=== PATIENT | female | born 1970 | race Caucasian/White ===

== ENCOUNTER 2017-09-23 12:15 | Emergency (ER) | payer OTHER ==
[~2017-09-23] VITALS: Ht 162.6 cm; Wt 89.6 kg
[~2017-09-23 12:15] MED LIST: CYCL-319 PO; HYDR-3498 PO; IBUP-1542 PO; NAPR-260 PO
[2017-09-23 12:19] VITALS: Ht 162.6 cm; Wt 89.6 kg
[2017-09-23] MEDS ORDERED: KETOROLAC 30 MG INJ IM STA (12:42)
[2017-09-23] MEDS ORDERED: ACETAMINOPHEN 325 MG TAB PO ONE (13:00)
--- NOTE | 2017-09-23 14:09 | RADRPT ---
PROCEDURE: XR Chest. CLINICAL INDICATION: Cough. Fever. TECHNIQUE: Frontal chest x-ray was obtained. COMPARISON: None. FINDINGS: Heart is not enlarged. Mediastinum is not widened. No hilar masses seen. Lungs are clear of any infi ltrate or mass. There is no effusion or pneumothorax. IMPRESSION: No evidence for active cardiopulmonary disease. .Kit Domingo MD, MD Date Time Electronically viewed and signed by .Kit Domingo MD, on 09/23/2017 14:09 .A/
[2017-09-23] MEDS ORDERED: OSLT75C PO (14:21)
[2017-09-23] MEDS ORDERED: D-ME473S2 PO (14:21)
[2017-09-23] MEDS ORDERED: IBUP-1542 PO (14:21)
[2017-09-23] MEDS ORDERED: PROM5SYR2 PO (14:22)
--- NOTE | 2017-09-23 14:26 | ERD ---
ER Documentation Chief Complaint Chief Complaint FEVER , BODY ACHE X 2 DAYS HPI This 46-year-old female presents with a one-day history of fever and body aches and cough. She has no vomiting, abdominal pain, diarrhea, urinary complaints, neck stiffness, rashes, chest pain. ROS All systems reviewed and are negative except as per history of present illness. Medications Home Meds Active Scripts Promethazine HCl/Codeine (Prometh-Codein 6.25-10 mg/5 ml) 5 Ml Syrup, 5 ML PO TID for 4 Days 4 ounces Prov:BILLY GALEANO MD 09/23/17 Oseltamivir Phosphate* (Tamiflu*) 75 Mg Capsule, 75 MG PO BID for 5 Days, CAP Prov:BILLY GALEANO MD 09/23/17 Ibuprofen* (Motrin*) 600 Mg Tab, 600 MG PO Q6, #15 TAB Prov:BILLY GALEANO MD 09/23/17 Hydrocodone Bit-Acetaminophen* ([place]*) 5-325 Mg Tab, 1 TAB PO Q6 Y for PAIN, # 20 TAB Prov:EM ERNST PA-C 04/11/15 Cyclobenzaprine Hcl* (Cyclobenzaprine Hcl*) 10 Mg Tablet, 10 MG PO TID, #30 TAB Prov:EM ERNST PA-C 04/11/15 Naproxen* (Naprosyn*) 500 Mg Tablet, 500 MG PO BID Y for PAIN AND/OR INFLAMMATION, #60 TAB Prov:EM ERNST PA-C 04/11/15 Ibuprofen* (Motrin*) 600 Mg Tab, 600 MG PO Q6H Y for PAIN AND OR ELEVATED TEMP, #30 Prov:EM ERNST PA-C 04/11/15 Discontinued Scripts Dextromethorphan Hb-Promethazine Hcl* (Promethazine DM* Syrup) 473 Ml Syrup, 5 ML PO Q6 Y for COUGH for 4 Days, ML Prov:BILLY GALEANO MD 09/23/17 Allergies Allergies: Coded Allergies: No Known Allergy (Unverified , 04/11/15) PMhx/Soc Medical and Surgical Hx: pt denies Medical Hx History of Surgery: Yes (TUBULIGATION) Anesthesia Reaction: No Hx Neurological Disorder: No Hx Respiratory Disorders: No Hx Cardiac Disorders: No Hx Psychiatric Problems: No Hx Miscellaneous Medical Probl: No Hx Alcohol Use: No Hx Substance Use: No Hx Tobacco Use: No Smoking Status: Never smoker Physical Exam Vitals Vital Signs Date Time Temp Pulse Resp B/P Pulse Ox O2 Delivery O2 Flow Rate FiO2 09/23/17 12:19 101.4 112 18 137/83 97 Physical Exam Const: [] Alert, no apparent distress. Head: Atraumatic Eyes: Normal Conjunctiva ENT: Normal External Ears, Nose and Mouth. TMs normal and oropharynx normal. Neck: Full range of motion..~ No meningismus. Resp: Clear to auscultation bilaterally. Dry cough without rales, wheezing or retractions. Cardio: Regular rate and rhythm, no murmurs Abd: Soft, non tender, non distended. Normal bowel sounds Skin: No petechiae or rashes Back: No midline or flank tenderness Ext: No cyanosis, or edema Neur: Awake and alert Psych: Normal Mood and Affect Results 24 hrs Current Medications Medications (Trade) Dose Ordered Sig/Fide Route PRN Reason Start Time Stop Time Status Last Admin Dose Admin Ketorolac Tromethamine (Toradol) 30 mg ONCE STAT IM 09/23/17 12:42 09/23/17 12:44 DC 09/23/17 13:07 Acetaminophen (Tylenol Tab) 650 mg ONCE ONCE PO 09/23/17 13:00 09/23/17 13:01 DC 09/23/17 13:07 Procedures/MDM Patient presents with fever, myalgias and cough for the last day. She has no evidence of hypoxemia or respiratory distress. Chest X-ray 1V Interpreted by me: Soft Tissue: No acute abnormalities Bones: No acute abnormalities Mediastinum/Cardiac Silhouette/Lungs: [No acute abnormalities] impression- normal 1 view chest x-ray She was given Toradol and Tylenol. Patient with fever and URI symptoms suggestive of likely viral illness or possibly influenza. Given the short duration she will treated with Tamiflu, promethazine with codeine and ibuprofen , primary care follow-up and return precautions. The patient was stable with no new complaints during the ER course. Clinically, there is no current evidence to suggest meningitis, sepsis, acute abdomen, pneumonia, acute coronary syndrome, pulmonary embolism, or any other emergent condition appearing to require further evaluation or hospitalization. The patient should certainly return for any new or worsening symptoms per the aftercare instructions. They should otherwise follow-up with her primary care doctor for reevaluation this week. Departure Diagnosis: Primary Impression: URI, acute Additional Impression: Fever Fever type: unspecified Qualified Code: R50.9 - Fever, unspecified fever cause Condition: Stable Patient Instructions: Fever Control (Child), Uri, Viral, No Abx (Adult) Additional Instructions: X-ray normal. Likely viral illness or influenza may last 3-5 days. Recheck for new or worsening symptoms or primary care doctor. BILLY GALEANO MD Sep 23, 2017 14:26
== END 2017-09-23 14:38 | disposition home or self-care (01) ==
LOC: FTE 12:15
DX: J06.9 Acute upper respiratory infection, unspecified (principal)
CPT/HCPCS: 71010; 96372; J1885; Z7502; Z7610

== ENCOUNTER 2018-07-01 12:47 | Emergency (ER) | END 2018-07-01 13:30 | disposition home or self-care (01) ==

== ENCOUNTER 2018-12-25 09:32 | Emergency (ER) | payer OTHER ==
[~2018-12-25] VITALS: Ht 165.1 cm; Wt 94.7 kg
[~2018-12-25 09:32] MED LIST changes: +BENZ1LOZ52 MM; +CETI10CA PO; -CYCL-319 PO; +CYCL10TA7 PO; +IBUP-1561 PO; -NAPR-260 PO; +NAPR-985 PO; +OSEL75CA23 PO; +PROM5SYR2 PO
[2018-12-25 09:35] VITALS: BP 135/71; PULSE 85; RESP 18; Ht 165.1 cm; Wt 94.7 kg
[2018-12-25] MEDS ORDERED: ACET500C5 PO (10:46)
[2018-12-25] MEDS ORDERED: BENZ1LOZ52 MM (10:46)
[2018-12-25] MEDS ORDERED: BENZ-6 PO (10:46)
--- NOTE | 2018-12-25 10:55 | ERD ---
ER Documentation Chief Complaint Chief Complaint FEVER , COUGH , ST X 3 DAYS HPI 48-year-old female patient with a past medical history of hypertension presents to ED complaining of fever, cough, sore throat that started 3 days ago. Patient reports that she takes lisinopril, naproxen, ferrous sulfate. States that she has not taken any medications for cough or sore throat. Reports that she is still able to swallow liquids and solids without any difficulty. Denies any wheezing, shortness of breath, nausea, vomiting, chest pain, abdominal pain. ROS All systems reviewed and are negative except as per history of present illness. Medications Home Meds Active Scripts Acetaminophen* (Tylophen*) 500 Mg Capsule, 1 CAP PO Q6H PRN for PAIN AND OR ELEVATED TEMP, #20 CAP Prov:NADEEN ALDRIDGE PA-C 12/25/18 Benzocaine/Menthol* (Cepacol* Sore Throat Lozenges) 1 Each Lozenge, 1 EACH MM q2h PRN for SORE THROAT, #10 [place] Prov:NADEEN ALDRIDGE PA-C 12/25/18 Benzonatate* (Tessalon Perle*) 100 Mg Capsule, 100 MG PO Q8H PRN for COUGH, #20 CAP Prov:NADEEN ALDRIDGE PA-C 12/25/18 Benzocaine/Menthol* (Cepacol* Sore Throat Lozenges) 1 Each Lozenge, 1 EACH MM q2h PRN for SORE THROAT, #14 LOZENGE Prov:DEBRA TRIPP PA-C 07/01/18 Cetirizine Hcl* (Zyrtec*) 10 Mg Capsule, 10 MG PO DAILY, #30 TAB.CHEW Prov:DEBRA TRIPP PA-C 07/01/18 Ibuprofen* (Motrin*) 400 Mg Tab, 400 MG PO Q6H PRN for PAIN AND OR ELEVATED TEMP, #30 TAB Prov:DEBRA TRIPP PA-C 07/01/18 Promethazine HCl/Codeine (Prometh-Codein 6.25-10 mg/5 ml) 5 Ml Syrup, 5 ML PO TID for 4 Days 4 ounces Prov:BILLY GALEANO MD 12/9/17 Oseltamivir Phosphate* (Tamiflu*) 75 Mg Capsule, 75 MG PO BID for 5 Days, CAP Prov:BILLY GALEANO MD 09/23/17 Ibuprofen* (Motrin*) 600 Mg Tab, 600 MG PO Q6, #15 TAB Prov:BILLY GALEANO MD 09/23/17 Hydrocodone Bit-Acetaminophen* ([place]*) 5-325 Mg Tab, 1 TAB PO Q6 PRN for PAIN, #20 TAB Prov:EM ERNST PA-C 04/11/15 Cyclobenzaprine Hcl* (Cyclobenzaprine Hcl*) 10 Mg Tablet, 10 MG PO TID, #30 TAB Prov:EM ERNST PA-C 04/11/15 Naproxen* (Naprosyn*) 500 Mg Tablet, 500 MG PO BID PRN for PAIN AND/OR INFLAMMATION, #60 TAB Prov:EM ERNST PA-C 04/11/15 Ibuprofen* (Motrin*) 600 Mg Tab, 600 MG PO Q6H PRN for PAIN AND OR ELEVATED TEMP, #30 Prov:EM ERNST PA-C 04/11/15 Allergies Allergies: Coded Allergies: No Known Allergy (Unverified , 04/11/15) PMhx/Soc History of Surgery: Yes (TUBULIGATION, Cholecystectomy. ) Anesthesia Reaction: No Hx Neurological Disorder: No Hx Respiratory Disorders: Yes (Bronchitis) Hx Cardiac Disorders: No Hx Psychiatric Problems: No Hx Miscellaneous Medical Probl: No Hx Alcohol Use: No Hx Substance Use: No Hx Tobacco Use: No Smoking Status: Never smoker FmHx Family History: No diabetes, No coronary disease Physical Exam Vitals Vital Signs Date Temp Pulse Resp B/P (MAP) Pulse Ox O2 O2 Flow FiO2 Time Delivery Rate 12/25/18 99.8 85 18 135/71 98 09:35 (92) Physical Exam Const: Aef-aoy-cloifuxdd, well-nourished. In no acute distress. Head: Atraumatic, normocephalic Eyes: Normal Conjunctiva without injection. No purulent discharge. PERRL. EOMI ENT: Normal external ear. Ear canal without erythema. Tympanic membrane pearly graham without effusion or bulging. Nasal canal clear with normal turbinates. Moist oropharynx without tonsillar exudates. Non-erythematous pharynx. Uvula midline. No drooling. No trismus. Neck: Full range of motion. No meningismus. No cervical lymphadenopathy. Resp: Clear to auscultation bilaterally. No wheezing, rhonchi, rales, or crackles. No accessory muscle use. No retractions. Cardio: Regular rate and rhythm. No murmurs, rubs or gallops. Abd: Soft, non tender, non distended. Normal bowel sounds. No palpable masses. No rebound tenderness. No guarding. Skin: No petechiae or rashes Back: No midline tenderness. No CVA tenderness. Ext: No cyanosis, or edema. Neur: Awake and alert. Psych: Normal Mood and Affect Procedures/MDM 48-year-old female patient with a past medical history of hypertension presents to ED complaining of fever, cough, sore throat that started 3 days ago. Patient is afebrile and nontoxic-appearing. This patient presents to the ED with symptoms consistent with a viral acute upper respiratory infection. Patient's physical exam include lungs which were clear to auscultation and a normal pulse oximetry. There is a low suspicion for pneumonia, pneumothorax, mononucleosis, pulmonary embolism, epiglottitis, otitis media, otitis externa, viral/strep pharyngitis, sinusitis, myocarditis, pericarditis, endocarditis, peritonsillar abscess, mastoiditis, retropharyngeal abscess, meningitis, sepsis, acute abdomen or other emergent conditions. Fluids, rest, and symptomatic treatment are recommended for the management of patient's symptoms. Diagnosis: Cough, Sore throat Discharge medications: Tessalon Perles, Tylenol Follow up with primary care physician in 1-2 days. Instructed patient to return to the ED sooner for any worsening symptoms. Patient's questions were answered. Patient is hemodynamically stable. Patient understood and agreed with discharge plan. Patient discharged stable. Disclaimer: Inadvertent spelling and grammatical errors are likely due to EHR/dictation software use and do not reflect on the overall quality of patient care. Also, please note that the electronic time recorded on this note does not necessarily reflect the actual time of the patient encounter. Departure Diagnosis: Primary Impression: Cough Additional Impression: Sore throat Condition: Stable Patient Instructions: Viral Syndrome (Adult) Referrals: COMMUNITY CLINICS YOU HAVE RECEIVED A MEDICAL SCREENING EXAM AND THE RESULTS INDICATE THAT YOU DO NOT HAVE A CONDITION THAT REQUIRES URGENT TREATMENT IN THE EMERGENCY DEPARTMENT. FURTHER EVALUATION AND TREATMENT OF YOUR CONDITION CAN WAIT UNTIL YOU ARE SEEN IN YOUR DOCTORS OFFICE WITHIN THE NEXT 1-2 DAYS. IT IS YOUR RESPONSIBILITY TO MAKE AN APPOINTMENT FOR FOLOW-UP CARE. IF YOU HAVE A PRIMARY DOCTOR --you should call your primary doctor and schedule an appointment IF YOU DO NOT HAVE A PRIMARY DOCTOR YOU CAN CALL OUR PHYSICIAN REFERRAL HOTLINE AT IF YOU CAN NOT AFFORD TO SEE A PHYSICIAN YOU CAN CHOSE FROM THE FOLLOWING [facility] [address] [facility] [address] [facility] [facility] [address] [facility] [address] [facility] [address] [facility]. [facility] [address] [facility] YOU HAVE RECEIVED A MEDICAL SCREENING EXAM AND THE RESULTS INDICATE THAT YOU DO NOT HAVE A CONDITION THAT REQUIRES URGENT TREATMENT IN THE EMERGENCY DEPARTMENT. FURTHER EVALUATION AND TREATMENT OF YOUR CONDITION CAN WAIT UNTIL YOU ARE SEEN IN YOUR DOCTORS OFFICE WITHIN THE NEXT 1-2 DAYS. IT IS YOUR RESPONSIBILITY TO MAKE AN APPOINTMENT FOR FOLOW-UP CARE. IF YOU HAVE A PRIMARY DOCTOR --you should call your primary doctor and schedule and appointment IF YOU DO NOT HAVE A PRIMARY DOCTOR YOU CAN CALL OUR PHYSICIAN REFERRAL HOTLINE AT . IF YOU CAN NOT AFFORD TO SEE A PHYSICIAN YOU CAN CHOSE FROM THE FOLLOWING [facility]: [facility] [address] [place] [address] [facility] [address] [place] [address] [facility] + [facility] [address] [place] [address] [facility] URGENT CARE/SPECIALTIES Additional Instructions: Llame al doctor MAANA y moriah nasrin ANGEL PARA DENTRO DE 2-3 GUZMAN.Dgale a la secre taria que nosotros le instruimos hacer esta angel.Avise o llame si brasher condicin se empeora antes de la angel. Regresa aqui si peor o no mejor. NADEEN ALDRIDGE PA-C Dec 25, 2018 10:55
== END 2018-12-25 11:31 | disposition home or self-care (01) ==
LOC: FTE 09:32
DX: J02.9 Acute pharyngitis, unspecified (principal); I10 Essential (primary) hypertension
CPT/HCPCS: 99282